=== PATIENT | male | born 1980 | race Caucasian/White ===

== ENCOUNTER 2020-01-06 19:36 | Emergency (ER) | payer OTHER ==
[~2020-01-06] VITALS: Ht 180.3 cm; Wt 106.6 kg
[2020-01-06] MEDS ORDERED: ANAPROX DS550 MG PO (20:10)
[2020-01-06] MEDS ORDERED: CLINDAMYCIN HC300 MG PO (20:10)
== END 2020-01-06 20:36 | disposition home or self-care (01) ==
LOC: ED 19:36
DX: K08.89 Other specified disorders of teeth and supporting structures (principal)